=== PATIENT | male | born 1980 | race Hispanic/Latino ===

== ENCOUNTER 2025-08-04 11:27 | Emergency (ER) | payer OTHER ==
[~2025-08-04] VITALS: Ht 175.3 cm; Wt 95.3 kg
[2025-08-04 11:37] VITALS: PULSE 71; RESP 16; TEMP 98.1; O2SAT 99
[2025-08-04] MEDS: KETOROLAC TROMETHAMINE 30 MG/ML VIAL IM STA (13:15)
[2025-08-04] MEDS ORDERED: FLECTOR1 EACH TD (13:47)
== END 2025-08-04 14:04 | disposition home or self-care (01) ==
LOC: ER 12:00
DX: S39.012A Strain of muscle, fascia and tendon of lower back, initial encounter (principal); W01.0XXA Fall on same level from slipping, tripping and stumbling without subsequent striking against object, initial encounter; Y93.01 Activity, walking, marching and hiking; Y92.89 Other specified places as the place of occurrence of the external cause; I10 Essential (primary) hypertension; F41.9 Anxiety disorder, unspecified
CPT/HCPCS: 72131; 72192; 73700; 99283; J1885